=== PATIENT | male | born 1990 | race Caucasian/White ===

== ENCOUNTER 2020-03-27 10:33 | Emergency (ER) | payer OTHER, SELFPAY ==
--- NOTE | ~2020-03-27 | XR_ITS ---
EXAMINATION: XR foot RT min 3V DATE: 03/27/2020 10:58 INDICATION: Right foot injury and pain. TECHNIQUE: 4 views of right foot were obtained. COMPARISON: None. FINDINGS: There is a nondisplaced transverse extra-articular fracture of base of fifth metatarsal in near-anatomic alignment. There is mild hallux valgus. 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 There is an enthesophyte at plantar aspect of calcaneal tuberosity. IMPRESSION: 1. Nondisplaced transverse extra-articular fracture of base of fifth metatarsal. Reviewed, dictated and finalized at location A. [employer] IMPRESSION: 1. Nondisplaced transverse extra-articular fracture of base of fifth metatarsal .
[2020-03-27 10:42] VITALS: BP 146/84; PULSE 100; RESP 16; TEMP 37.2; O2SAT 98
--- NOTE | 2020-03-27 11:00 | PC.NURSE ---
PT DECLINED WHEELCHAIR TO ROOM AND RADIOLOGY
--- NOTE | 2020-03-27 11:09 | ED.LOWEXIN ---
HPI - Extremity Injury (Lower) General Chief Complaint: Extremity Injury, Lower Stated Complaint: right foot pain Source: patient Mode of arrival: ambulatory Limitations: no limitations History of Present Illness HPI Narrative: Patient is a 29-year-old male who presents complaining of a right foot pain. He reports dancing and rolling ankle last night at his wedding. MD complaint: ankle injury and foot injury Related Data Allergies Allergy/AdvReac Type Severity Reaction Status Date / Time No Known Allergies Allergy Verified 03/27/20 11:06 Review of Systems Review of Systems: Narrative: CONSTITUTIONAL: Denies fever, chills, or sweats. EYES: Denies visual changes, redness, or discharge. ENT: Denies rhinorrhea, congestion, sore throat, or otalgia. CARDIOVASCULAR: Denies chest pain, palpitations, or edema. RESPIRATORY: Denies cough or dyspnea. GASTROINTESTINAL: Denies abdominal pain, nausea, vomiting, or diarrhea. GENITOURINARY: Denies dysuria or hematuria. SKIN: Denies rash or itching. MUSCULOSKELETAL: Right foot pain NEUROLOGIC: Denies headache, numbness, dizziness, or weakness. PSYCHIATRIC: Denies anxiety or depression. [facility] Past Medical History Medical History No significant past medical history Surgical History Surgical History No significant past surgical history Social History Social History (Updated 03/27/20 @ 11:13 by MELISSA Olivares) Smoking status: Never smoker Alcohol intake: current Alcohol use details: Social Substance use: never Living arrangements: with family Occupation/Education: occupation Exam Narrative: Exam Narrative: GENERAL: Well-appearing, well-nourished, and in no acute distress. HEAD: Normocephalic, atraumatic. EYES: No redness or drainage. ENT: Mucous membranes pink and moist. CHEST: No respiratory distress. EXTREMITIES: Edema and tenderness with palpation to right fifth metatarsal SKIN: Warm, dry, no rash. NEURO: No focal deficits. Alert and oriented x3. Gait steady. PSYCH: Normal affect. No signs of depression or anxiety. Course Vital Signs Vital signs: Vital Signs Temperature 37.2 C 03/27/20 10:42 Pulse Rate 100 03/27/20 10:42 Respiratory Rate 16 03/27/20 10:42 Blood Pressure 146/84 H 03/27/20 10:42 Pulse Oximetry 98 03/27/20 10:42 Temperature 37.2 C 03/27/20 10:42 Pulse Rate 100 03/27/20 10:42 Respiratory Rate 16 03/27/20 10:42 Blood Pressure 146/84 H 03/27/20 10:42 Pulse Oximetry 98 03/27/20 10:42 Procedures Orthopedic Splinting/Casting Injury #1: Splinting/Casting Date: 03/27/20 Splinting/Casting Time: 11:21 Side: right Lower Extremity Injury Location: foot OCL: short leg Pre-Procedure Neuro Vascular Exam: normal Post-Procedure Neuro Vascular Exam: normal Other Orthopedic Equipment: crutches Additional Comments: Patient ambulates with crutches without difficulty, neurovascularly intact. Splinting completed by tech. MDM - Extremity Injury (Lower) MDM Narrative Medical decision making narrative: Patient is a nondisplaced fracture of the right fifth metatarsal. Posterior splint and crutches completed at this time. Patient to follow-up with Ortho or podiatry. Patient is aware that he needs to be nonweightbearing at this time. Patient is stable for discharge to home with outpatient follow-up as directed Differential Diagnosis Differential diagnosis: Likely ankle sprain and strain and fracture of toe Critical Care Time Critical Care Time Critical Care Time: No Discharge Plan Discharge Clinical Impression: Fracture of base of fifth metatarsal bone Qualifiers: Encounter type: initial encounter Fracture type: closed Laterality: right Qualified Code(s): S92.351A - Displaced fracture of fifth metatarsal bone, right foot, initial encounter f
== END 2020-03-27 11:27 | disposition home or self-care (01) ==
PROVIDERS: Emergency Provider Nurse Practitioner
DX: S92.354A Nondisplaced fracture of fifth metatarsal bone, right foot, initial encounter for closed fracture (principal); X50.9XXA Other and unspecified overexertion or strenuous movements or postures, initial encounter; Y93.41 Activity, dancing
CPT/HCPCS: 29515; 73630; 99214; G0463

== ENCOUNTER → 2021-06-26 14:12 | Outpatient (CLI) | payer OTHER, SELFPAY ==
--- NOTE | ~2021-06-26 | XR_ITS ---
XR lumbar spine min 4V DATE: 06/26/2021 14:41 INDICATION: Back pain TECHNIQUE: AP, lateral, coned lateral lumbosacral views, bilateral oblique views COMPARISON: 03/07/2009 lumbar spine FINDINGS: Normal alignment lumbar spine. No fracture or bone destruction, spondylolysis or spondyloli sthesis. There is mild to moderate loss of height at the L5-S1 interspace. The lumbar interspaces otherwise ar e well preserved. Pedicles are intact. The sacral iliac joints are intact. IMPRESSION: Mild to moderate loss of height of L5-S1 interspace Reviewed, dictated and finalized at location A. [employer]
== END ==
PROVIDERS: PCP Family Medicine; Visit Provider Family Medicine
DX: M54.9 Dorsalgia, unspecified (principal); R29.890 Loss of height
CPT/HCPCS: 72110